=== PATIENT | female | born 1980 | race Two or more races ===

== ENCOUNTER 2022-01-06 22:50 | Emergency (ER) | payer OTHER ==
[~2022-01-06] VITALS: Ht 160 cm; Wt 59.0 kg
--- NOTE | 2022-01-06 23:02 | NUR ---
[facility] A/OX1. TOLERATING R/A WELL WITH NO SOB. CONNECTED PT TO POX AND MONITOR.
--- NOTE | 2022-01-06 23:31 | NUR ---
RAC #20G S/L; PATENT AND INTACT. BLOOD COLLECTED AND GIVEN TO LAB
[2022-01-07] MEDS ORDERED: IV NS 0.9% 1,000 ML IV ONE
[2022-01-07] MEDS ORDERED: LORAZEPAM INJ 2 MG/ML VIAL IV ONE
[2022-01-07] MEDS ORDERED: LORAZEPAM INJ 2 MG/ML VIAL ONE (00:03)
[2022-01-07 00:10] LABS: BASOPHILS # (AUTO) 0.1 K/uL (0.0-0.2); BASOPHILS % (AUTO) 1.1 % (0.0-2.0); EOSINOPHILS % (AUTO) 3.5 % (0.0-6.0); HEMATOCRIT 37 % (33-45); HEMOGLOBIN 12.1 g/dL (11.5-14.8); LYMPHOCYTES # (AUTO) 2.9 K/uL (0.8-4.8); LYMPHOCYTES % (AUTO) 30.4 % (20.0-44.0); MEAN CORPUSCULAR HGB CONC 33 g/dl (31.0-36.0); MEAN CORPUSCULAR VOLUME 98 fL (82-100); MONOCYTES # (AUTO) 0.8 K/uL (0.1-1.30); MONOCYTES % (AUTO) 8.4 % (2.0-12.0); NEUTROPHILS # (AUTO) 5.4 K/uL (1.8-8.9); NEUTROPHILS % (AUTO) 56.6 % (43.0-81.0); PLATELET COUNT (AUTO) 217 K/uL (150-450); RED BLOOD CELL COUNT(AUTO) 3.71 MIL/uL (4.0-5.2); WHITE BLOOD COUNT (AUTO) 9.5 K/uL (4.3-11.0)
[2022-01-07 00:12] LABS: CALCIUM, SERUM 9.2 mg/dL (8.5-10.1); CARBON DIOXIDE 25 mmol/L (21-32); CHLORIDE 102 mmol/L (98-107); CREATININE 1.2 mg/dL (0.6-1.3); GLUCOSE 77 mg/dL (74-106); SERUM AMMONIA 10 umol/L (11-32); SODIUM SERUM 138 mmol/L (136-145); UREA NITROGEN, BLOOD 15 mg/dL (7-18)
[2022-01-07 00:18] LABS: ALANINE AMINOTRANSFERASE 20 U/L (12-78); ALBUMIN 2.9 g/dL (3.4-5.0); ALCOHOL, BLOOD < 3 mg/dL (0-0); ALKALINE PHOSPHATASE 41 U/L (46-116); ASPARTATE AMINOTRANSFERASE 15 U/L (15-37); BILIRUBIN,DIRECT 0.1 mg/dL (0.0-0.2); BILIRUBIN,TOTAL 0.4 mg/dL (0.2-1.0); TOTAL PROTEIN, SERUM 7.6 g/dL (6.4-8.2)
[2022-01-07 00:19] LABS: ACETAMINOPHEN 0 ug/ml (10-30)
[2022-01-07 00:51] LABS: THYROID STIMULATING HORMONE 10.143 uIU/mL (0.358-3.74)
--- NOTE | 2022-01-07 01:24 | NUR ---
COLLECTED URINE AND SENT TO LAB. PT CONTINENT WITH ASSIST TO TOILET.
[2022-01-07 01:43] LABS: BILIRUBIN,URINE MODERATE (NEGATIVE); COLOR,URINE YELLOW (YELLOW); LEUKOCYTE ESTERASE ,URINE MODERATE (NEGATIVE); NITRITE, URINE NEGATIVE (NEGATIVE); PROTEIN,URINE 30 mg/dl (NEGATIVE); UGLUCOSE NEGATIVE (NEGATIVE); UROBILINOGEN,URINE >=8.0 EU/dL (0.2)
[2022-01-07 02:01] LABS: BACTERIA,URINE Moderate /HPF (None Seen); SQUAMOUS EPITHELIAL CELL,UR Many /HPF (None Seen); TRICHOMONAS,URINE Few /HPF (None Seen); WBC,URINE 21-50 /HPF (0-3)
[2022-01-07 02:02] LABS: HYALINE CASTS, URINE Few /LPF (None Seen); MUCUS,URINE Few /LPF (None Seen)
--- NOTE | 2022-01-07 02:05 | NUR ---
PT TAKEN TO CT [facility]IA [facility]
[2022-01-07] MEDS ORDERED: CEPH500T PO (02:21)
[2022-01-07] MEDS ORDERED: METR500T PO (02:21)
--- NOTE | 2022-01-07 03:23 | NUR ---
[facility] ETA: 30-45 MIN
--- NOTE | 2022-01-07 03:25 | NUR ---
REPORT GIVEN TO MARLENE FROM [facility]. D/C INSTRUCTIONS GIVEN
--- NOTE | 2022-01-07 04:28 | NUR ---
REPORT GIVEN TO KATHY EMT. PT D/C TO [facility]. VSS. IV removed. Catheter intact and site benign. Pressure and 4x4 applied to site. No bleeding noted.
[2022-01-07 04:31] VITALS: BP 109/63
== END 2022-01-07 04:28 ==
LOC: ER 22:54
DX: R41.82 Altered mental status, unspecified (principal); F15.921 Other stimulant use, unspecified with intoxication delirium; A59.9 Trichomoniasis, unspecified; N39.0 Urinary tract infection, site not specified; F25.9 Schizoaffective disorder, unspecified
CPT/HCPCS: 36415; 70450; 71045; 80048; 80076; 80143; 80307; 80320; 81001; 82140; 83735; 84439; 84443; 84481; 84484; 84703; 85025; 85730; 87086; 96361; 96374; 99285; J2060; J7030; G0480